=== PATIENT | male | born 2000 | race Caucasian/White ===

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

== ENCOUNTER 2023-08-07 23:45 | Emergency (ER) | payer BC, OTHER ==
[2023-08-08] MEDS: Take Home: Gentamicin 0.3% Ophth Soln 5 ML, 1 Bottle Pack EYEBOTH ONE (00:02)
[2023-08-08] MEDS: Proparacaine 0.5% Ophth Soln 15 ML Bottle EYELF ONE (00:04)
[2023-08-08] MEDS: Fluorescein 1 MG Ophth Strip EYEBOTH ONE (00:05)
== END 2023-08-08 00:15 | disposition home or self-care (01) ==
LOC: VM.ED 23:45
DX: H16.133 Photokeratitis, bilateral (principal)
CPT/HCPCS: 99283; A9270; J3490

== ENCOUNTER 2024-09-07 17:20 | Emergency (ER) | payer BC, OTHER ==
[2024-09-07] MEDS: Acetaminophen 500 MG Tab PO ONE (18:10)
[2024-09-07] MEDS: Diphtheria,Pertussis(Acell),Tetanus Vaccine 0.5 ML Syringe IM ONE (18:15)
== END 2024-09-07 18:25 | disposition home or self-care (01) ==
LOC: VM.ED 17:20
DX: S00.03XA Contusion of scalp, initial encounter (principal); Z23 Encounter for immunization; W20.8XXA Other cause of strike by thrown, projected or falling object, initial encounter; Y99.0 Civilian activity done for income or pay
CPT/HCPCS: 70450; 90471; 90715; 99283-25; A9270-GY